=== PATIENT | female | born 1975 ===

== ENCOUNTER 2018-04-08 13:26 | Emergency (ER) | payer OTHER ==
[2018-04-08 14:04] VITALS: BP 122/71; PULSE 81; RESP 18; TEMP 98.8; O2SAT 99
--- NOTE | 2018-04-08 14:28 | C.PDOC ---
History Of Present Illness 42 year old female with no prior history presents to ED for evaluation of right knee pain status-post twisting injury sustained 2 months ago. Patient states she stepped in a hole at work, accidentally twisting the knee. Pain also radiates to her right hip. Notes she has applied ice to the area and bengay with no improvement. She is able to ambulate with pain. Patient notes intermittent swelling to the knee as well, which is currently improved but worsens with excessive activity. She plays soccer recreational. Denies fever, numbness, tingling, weakness, and other associated symptoms. Time Seen by Provider: 04/08/18 14:16 Chief Complaint (Nursing): Lower Extremity Problem/Injury History Per: Patient History/Exam Limitations: no limitations Onset/Duration Of Symptoms: Days Current Symptoms Are (Timing): Still Present Past Medical History Reviewed: Historical Data, Nursing Documentation, Vital Signs Vital Signs: Last Vital Signs Temp 98.8 F 04/08/18 14:02 Pulse 81 04/08/18 14:02 Resp 18 04/08/18 14:02 BP 122/71 04/08/18 14:02 Pulse Ox 99 04/08/18 15:16 - Medical History PMH: No Chronic Diseases Family History: States: Unknown Family Hx - Social History Hx Alcohol Use: No Hx Substance Use: No - Immunization History Hx Tetanus Toxoid Vaccination: No Hx Influenza Vaccination: No Hx Pneumococcal Vaccination: No Review Of Systems Constitutional: Negative for: Fever, Chills Gastrointestinal: Negative for: Nausea, Vomiting Musculoskeletal: Positive for: Leg Pain (knee pain radiating to the right hip) Physical Exam - Physical Exam Appears: Non-toxic, No Acute Distress Skin: Normal Color, Warm, Dry, No Rash Head: Atraumatic, Normacephalic Eye(s): bilateral: Normal Inspection Neck: Normal ROM Chest: Symmetrical Extremity: Normal ROM (with good flexion and extension of right knee, no laxity) , Tenderness (Mild tenderness to anterior right knee, no tenderness to posterior knee), No Calf Tenderness, Capillary Refill (less than 2 seconds ), No Deformity, No Swelling Pulses: Left Dorsalis Pedis: Normal, Right Dorsalis Pedis: Normal Neurological/Psych: Oriented x3, Normal Speech Gait: Steady ED Course And Treatment O2 Sat by Pulse Oximetry: 99 (RA) Pulse Ox Interpretation: Normal - Other Rad Right knee X-Ray: Viewed By Me, Read By Radiologist Interpretation: FINDINGS: BONES: No acute displaced fracture. JOINTS: No dislocation. Medial compartment joint space narrowing. JOINT EFFUSION: Small to moderate suprapatellar joint effusion. OTHER FINDINGS: None. IMPRESSION: Small to moderate suprapatellar joint effusion. Medical Decision Making Medical Decision Making: Impression: knee sprain Plan: -X-ray: right knee -Ibuprofen Patient remained afebrile alert and oriented with stable vital signs during ER evaluation. Discussed results with patient, and copy of report was provided. Provided with knee immobilizer and Motrin. Patient stable for discharge home. Disposition Counseled Patient/Family Regarding: Diagnosis, Need For Followup, Rx Given - Disposition Referrals: Awais Ordonez III, MD [Staff Provider] - Disposition: HOME/ ROUTINE Disposition Time: 14:56 Condition: STABLE Additional Instructions: TOME MOTRIN PARA EL DOLOR Y LA INFLAMACIN CADA 6-8 HORAS SEGN SEA NECESARIO TRATE DE DESCANSAR Y ELEVAR KNEE CUANDO EN CASA SEGUIR CON ORTHO SI EL DOLOR PERSISTE Prescriptions: Ibuprofen [Motrin] 600 mg PO Q8 #30 tab Instructions: Knee Pain (DC) Print Language: KAZAKH - POA Present On Arrival: None - Clinical Impression Clinical Impression: Knee joint effusion - PA / JEWELRY CUTTER / Resident Statement MD/DO has reviewed & agrees with the documentation as recorded. - Scribe Statement The provider has reviewed the documentation as recorded by the Scribe (Anisa Owusu) All medical record entries made by the Scribe were at my direction and personally dictated by me. I have reviewed the chart and agree that the record accurately reflects my personal performance of the history, physical exam, medical decision making, and the department course for this patient. I have also personally directed, reviewed, and agree with the discharge instructions and disposition.
--- NOTE | 2018-04-08 14:51 | RAD ---
PROCEDURE: Right Knee Radiographs. HISTORY: COMPARISON: None available. FINDINGS: BONES: No acute displaced fracture. JOINTS: No dislocation. Medial compartment joint space narrowing. JOINT EFFUSION: Small to moderate suprapatellar joint effusion. OTHER FINDINGS: None. IMPRESSION: Small to moderate suprapatellar joint effusion.
== END 2018-04-08 15:47 | disposition home or self-care (01) ==
LOC: C.ER 13:26
DX: M25.461 Effusion, right knee (principal)